=== PATIENT | female | born 1950 | race Caucasian/White ===

== ENCOUNTER → 2016-06-25 | Day surgery (SDC) | payer MEDICARE ==
[~2016-06-25] MED LIST: LACTATED RINGER'S 1000 ML INJ 1,000 ML ONE; LEVO.125 PO; LISI-515 PO; PROPOFOL 500 MG/50 ML BTL IV ONE
--- NOTE | 2016-06-25 08:57 | GIPROC ---
[facility] [address] [facility], [address] EGD PROCEDURE REPORT EXAM DATE: 06/25/2016 PATIENT NAME: Domitila Clayton MR #: [id number] BIRTHDATE: 1950 ATTENDING: Remy Flood MD ORDER #: [id number] VENDING MACHINE FILLER: none STATUS: outpatient INDICATIONS: The patient is a 66 yr old female here for an EGD due to history of GERD, hx of gastric mass, morbid obesity PROCEDURE PERFORMED: EGD w/ biopsy MEDICATIONS: None and Per Anesthesia. TOPICAL ANESTHETIC: none CONSENT: The patient understands the risks and benefits of the procedure and understands that these risks include, but are not limited to: sedation, allergic reaction, infection, perforation and/or bleeding. Alternative means of evaluation and treatment include, among others: physical exam, x-rays, and/or surgical intervention. The patient elects to proceed with this endoscopic procedure. medical equipment was checked for proper function. Hand hygiene and appropriate measures for infection prevention was taken. After the risks, benefits and alternatives of the procedure were thoroughly explained, Informed consent was verified, confirmed and timeout was successfully executed by the treatment team. The patient was anesthetized with topical anesthesia and the EC-[id number] ([id number]) endoscope was introduced through the mouth and advanced to the first portion of the duodenum. Patient had significant bile in stomach. Gastric mass present on posterior wall of stomach. Biopsies were taken of the gastric mass. The antrum was also biopsied for rule out of h. pylori. Retroflexed views revealed no abnormalities The gastroscope was then slowly withdrawn and removed. STOMACH: A smooth mass 3cm was found on the posterior wall of the stomach. ADVERSE EVENTS: There were no complications. IMPRESSIONS: 1. Mass was found on the posterior wall of the stomach 2. Retroflexed views revealed no abnormalities RECOMMENDATIONS: 1. await biopsy results. Biopsy results will not be ready for 7-10 days. If you don't hear from us in two weeks, call our office for biopsy results. 2. start PPIs 3. await biopsy results. Biopsy results will not be ready for 7-10 days. If you don't hear from us in two weeks, call our office for biopsy results. 4. disposition- home condition stable repeat exam- none REPEAT EXAM: none Remy Flood MD eSigned: Remy Flood MD 06/25/2016 8:57 AM cc: Dilshad Christianson M.D. CPT CODES: 30717 Upper gastrointestinal endoscopy including esophagus, stomach, and either the duodenum and/or jejunum as appropriate; with biopsy, single or multiple ICD CODES: 537.9 Unspecified disorder of stomach and duodenum V12.79 Personal history of other specified digestive system diseases The ICD and CPT codes recommended by this software are interpretations from the data that the clinical staff has captured with the software. The verification of the translation of this report to the ICD and CPT codes and modifiers is the sole responsibility of the health care institution and practicing physician where this report was generated. [employer] will not be held responsible for the validity of the ICD and CPT codes included on this report. AMA assumes no liability for data contained or not contained herein. CPT is a registered trademark of the [employer]. PATIENT NAME: Domitila Clayton MR#: [id number]
== END | disposition home or self-care (01) ==
LOC: ESDC 06:57
PROVIDERS: ATTEND Surgery
DX: K21.9 Gastro-esophageal reflux disease without esophagitis (principal); E66.01 Morbid (severe) obesity due to excess calories; K31.89 Other diseases of stomach and duodenum
CPT/HCPCS: 00740; 43239; 88305; 88312; J3010; J7120

== ENCOUNTER 2016-07-20 12:47 | Inpatient (IN) | payer MEDICARE ==
[~2016-07-20] VITALS: Ht 167.6 cm; Wt 103.6 kg
[2016-08-14] MEDS ORDERED: LISI-515 PO (15:06)
[2016-08-14] MEDS ORDERED: LEVO.125 PO (15:06)
[2016-08-17] MEDS ORDERED: LACTATED RINGER'S 1000 ML IV PRN (06:15)
[2016-08-17] MEDS ORDERED: APREPITANT 40 MG CAP PO SCH (06:15)
[2016-08-17] MEDS ORDERED: metroNIDAZOLE 500 MG INJ 100 ML IV SCH (06:15)
[2016-08-17] MEDS ORDERED: ACETAMINOPHEN 1000 MG/100 ML VIAL IV SCH (06:15)
[2016-08-17] MEDS ORDERED: METOPROLOL TARTRATE 25 MG TAB PO PRN (06:15)
[2016-08-17] MEDS ORDERED: ceFAZolin 2 GM PREMIX 50 ML IV SCH (06:15)
[2016-08-17] MEDS ORDERED: ONDANSETRON HCL 4 MG/2 ML VIAL IV PUSH SCH (06:15)
[2016-08-17] MEDS ORDERED: POVIDONE IODINE 5% (ANTISEPSIS KIT) 4 APPLICATIONS EACH NARE PRN (06:15)
[2016-08-17] MEDS ORDERED: CHLORHEXIDINE GLUCONATE 2 % 1 PACK (2 CLOTHS) TOPICAL PRN (06:15)
[2016-08-17] MEDS ORDERED: SODIUM CHLORID 0.9% 500 ML IV PRN (06:15)
[2016-08-17] MEDS ORDERED: SCOPOLAMINE 1.5 MG PATCH T-DERMAL SCH (06:15)
[2016-08-17] MEDS ORDERED: INSULIN HUMAN REGULAR 1,000 UNITS/10 ML VIAL SQ PRN (06:15)
[2016-08-17 06:43] VITALS: BP 135/72; PULSE 82; RESP 20; TEMP 98.9; O2SAT 92
[2016-08-17] MEDS ORDERED: BUPIVACAINE/EPINEPHRINE 0.25% PF 30 ML VIAL ONE (07:05)
[2016-08-17] MEDS ORDERED: MIDAZOLAM HCL 2 MG/2 ML VIAL ONE ×2 (07:54→08:13)
[2016-08-17] MEDS ORDERED: FAMOTIDINE 20 MG/2 ML VIAL ONE ×2 (07:54→08:13)
[2016-08-17] MEDS ORDERED: fentaNYL CITRATE 250 MCG/5 ML AMP ONE (07:54)
[2016-08-17] MEDS ORDERED: HYDROmorphone HCL PF 2 MG/ML VIAL ONE (07:54)
[2016-08-17] MEDS ORDERED: DEXAMETHASONE SOD PHOS 4 MG/ML VIAL ONE (08:13)
[2016-08-17] MEDS ORDERED: METHYLENE BLUE 10 MG/ML VIAL PO ONE (09:07)
[2016-08-17] MEDS: 1/2 NS + KCL 20 MEQ INJ 1,000 ML IV SCH ×3 (11:22→22:01)
[2016-08-17] MEDS ORDERED: SODIUM CHLORIDE 0.9% FLUSH 10 ML FLUSH IV FLUSH PRN (11:30)
[2016-08-17] MEDS ORDERED: ACETAMINOPHEN 325MG/HYDROcodone 7.5MG/15ML UDC PO PRN ×2 (11:30)
[2016-08-17] MEDS ORDERED: diphenhydrAMINE HCL ELIXIR 12.5 MG/5 ML CUP PO PRN (11:30)
[2016-08-17] MEDS ORDERED: Post-op Orders (for Pharmacy) MISC OTHER ONE (11:30)
[2016-08-17] MEDS ORDERED: ONDANSETRON HCL 4 MG/2 ML VIAL IV PRN (11:30)
[2016-08-17] MEDS ORDERED: diphenhydrAMINE HCL 50 MG/ML VIAL IV PRN (11:30)
[2016-08-17] MEDS ORDERED: ENALAPRILAT 1.25 MG/ML VIAL IV PUSH PRN (11:30)
[2016-08-17] MEDS ORDERED: NALOXONE HCL 0.4 MG/ML AMP IV PRN (11:30)
[2016-08-17] MEDS ORDERED: DO NOT ADM ANY ANTICOAGULANT DRUGS PRN (11:52)
[2016-08-17] MEDS: RESP: ALBUTEROL 2.5 MG/3 ML NEB (SCH) INH ×4 (12:00→23:55)
[2016-08-17] MEDS ORDERED: NEOSTIGMINE 3 MG/3 ML SYR IV ONE (12:00)
[2016-08-17] MEDS ORDERED: ONDANSETRON HCL 4 MG/2 ML VIAL IV PUSH ONE (12:00)
[2016-08-17] MEDS ORDERED: PROPOFOL 200 MG/20 ML AMP IV ONE (12:00)
[2016-08-17] MEDS ORDERED: LACTATED RINGER'S 1000 ML INJ 2,000 ML IV ONE (12:00)
[2016-08-17] MEDS ORDERED: ePHEDrine/NS 25 MG/5 ML SYR IV ONE (12:00)
[2016-08-17] MEDS ORDERED: PHENYLEPH/NS 1000 MCG/10 ML SYR IV ONE (12:00)
[2016-08-17] MEDS: METOCLOPRAMIDE HCL 10 MG/2 ML VIAL IV PUSH SCH ×3 (12:00→23:47)
[2016-08-17] MEDS: PCA - TOTAL MG MORPHINE DELIVERED PER SHIFT SCH ×2 (14:00→22:00)
[2016-08-17] MEDS: MORPHINE SULFATE 30 MG/30 ML PCA IV SCH (14:12)
[2016-08-17 15:12] VITALS: O2SAT 97
[2016-08-17] MEDS: metroNIDAZOLE 500 MG INJ 100 ML IV SCH ×2 (15:17→22:05)
[2016-08-17] MEDS: ENOXAPARIN SODIUM 40 MG/0.4 ML SYRINGE SQ SCH (15:17)
[2016-08-17 16:00] VITALS: BP 180/77; PULSE 101; RESP 16; TEMP 95.9; O2SAT 92
[2016-08-17 20:00] VITALS: BP 91/52; PULSE 74; RESP 20; TEMP 98.8; O2SAT 94
[2016-08-17 20:16] VITALS: O2SAT 94
[2016-08-17] MEDS: SODIUM CHLORIDE 0.9% FLUSH 10 ML FLUSH IV FLUSH SCH (21:00)
[2016-08-18] VITALS (7 sets, daily range): BP systolic 89–133; BP diastolic 58–70; PULSE 68–96; RESP 16–20; TEMP 96.7–99.8; O2SAT 93–97
[2016-08-18] MEDS: MORPHINE SULFATE 30 MG/30 ML PCA IV SCH (00:17)
[2016-08-18] MEDS: 1/2 NS + KCL 20 MEQ INJ 1,000 ML IV SCH ×4 (00:17→15:52)
[2016-08-18] MEDS: RESP: ALBUTEROL 2.5 MG/3 ML NEB (SCH) INH ×6 (04:18→23:08)
[2016-08-18] MEDS: PCA - TOTAL MG MORPHINE DELIVERED PER SHIFT SCH (04:31)
[2016-08-18] MEDS: METOCLOPRAMIDE HCL 10 MG/2 ML VIAL IV PUSH SCH (04:31)
[2016-08-18] MEDS: metroNIDAZOLE 500 MG INJ 100 ML IV SCH (04:33)
[2016-08-18 06:12] LABS: AUTOMATED NEUTROPHIL # 12.8 TH/MM3 (1.8-7.7); BASOPHIL % 0.2 % (0.0-2.0); HEMATOCRIT 38.9 % (35.0-46.0); HEMO FLAGS DIFF FINAL; LYMPH % 6.9 % (9.0-44.0); MEAN CELL VOLUME 86.9 FL (80.0-100.0); MEAN CORPUSCULAR HEMOGLOBIN 29.5 PG (27.0-34.0); MONO % 8.7 % (0.0-8.0); NEUT % 84.2 % (16.0-70.0); PLATELET COUNT 238 TH/MM3 (150-450); RED BLOOD COUNT 4.48 MIL/MM3 (4.00-5.30); RED CELL DISTRIBUTION WIDTH 12.8 % (11.6-17.2); WHITE BLOOD COUNT 15.2 TH/MM3 (4.0-11.0)
[2016-08-18 06:40] LABS: BICARBONATE 24.1 MEQ/L (21.0-32.0); MAGNESIUM 2.2 MG/DL (1.5-2.5); POTASSIUM 4.3 MEQ/L (3.5-5.1)
[2016-08-18] MEDS: SODIUM CHLORIDE 0.9% FLUSH 10 ML FLUSH IV FLUSH SCH ×2 (09:00→20:55)
[2016-08-18] MEDS: PANTOPRAZOLE SOD 40 MG DELAYED RELEASE TAB PO SCH (09:00)
[2016-08-18] MEDS ORDERED: SODIUM CHLORID 0.9% 500 ML INJ 500 ML IV ONE (09:45)
[2016-08-18] MEDS ORDERED: METOCLOPRAMIDE HCL 10 MG/2 ML VIAL IV PUSH PRN (11:30)
--- NOTE | 2016-08-18 12:18 | HHI.PR ---
Subjective Subjective Notes 66yo female POD#1 RNY. Laying in bed with complaints of dizziness when she stands up. Last BP readings show SBP 89, MAP remains >65. Denies nausea. Not passing flatus Objective Vitals/I&O Vital Signs, 24 Hour Date Time Temp Pulse Resp B/P Pulse Ox O2 Delivery O2 Flow Rate FiO2 08/18/16 12:00 96.7 89 16 116/67 94 08/18/16 08:00 96.7 87 16 89/59 97 08/18/16 04:31 16 08/18/16 04:00 99.8 68 20 100/58 94 08/18/16 00:17 20 08/18/16 00:00 97.6 70 20 106/58 97 08/17/16 22:00 16 08/17/16 20:16 94 Nasal Cannula 21 08/17/16 20:00 98.8 74 20 91/52 94 08/17/16 16:00 95.9 101 16 180/77 92 08/17/16 15:12 97 Nasal Cannula 3.00 08/17/16 14:12 14 08/17/16 14:00 16 08/17/16 12:30 69 21 115/59 94 Nasal Cannula 3 Allergies Coded Allergies No Known Allergies (Unverified08/14/16) Intake/Outtake 08/18/16 08/18/16 11:00 23:00 Intake Total 1131 ml Output Total 400 ml Balance 731 ml Laboratory Tests per Jing Test 08/18/16 04:38 White Blood Count 15.2 TH/MM3 Red Blood Count 4.48 MIL/MM3 Sodium Level 138 MEQ/L Potassium Level 4.3 MEQ/L Blood Urea Nitrogen 19 MG/DL Active Scripts Active Reported Synthroid (Levothyroxine Sodium) 125 Mcg Tab 125 Mcg PO DAILY Lisinopril 20 Mg Tab 20 Mg PO DAILY Vital Signs Date Time Temp Pulse Resp B/P Pulse Ox O2 Delivery O2 Flow Rate FiO2 08/18/16 12:00 96.7 89 16 116/67 94 08/17/16 20:16 Nasal Cannula 21 08/17/16 15:12 3.00 Labs Laboratory Tests Test 08/18/16 04:38 White Blood Count 15.2 Red Blood Count 4.48 Hemoglobin 13.2 Hematocrit 38.9 Mean Corpuscular Volume 86.9 Mean Corpuscular Hemoglobin 29.5 Mean Corpuscular Hemoglobin 34.0 Concent Red Cell Distribution Width 12.8 Platelet Count 238 Mean Platelet Volume 8.4 Neutrophils (%) (Auto) 84.2 Lymphocytes (%) (Auto) 6.9 Monocytes (%) (Auto) 8.7 Eosinophils (%) (Auto) 0.0 Basophils (%) (Auto) 0.2 Neutrophils # (Auto) 12.8 Lymphocytes # (Auto) 1.0 Monocytes # (Auto) 1.3 Eosinophils # (Auto) 0.0 Basophils # (Auto) 0.0 CBC Comment DIFF FINAL Differential Comment Sodium Level 138 Potassium Level 4.3 Chloride Level 105 Carbon Dioxide Level 24.1 Anion Gap 9 Blood Urea Nitrogen 19 Creatinine 1.06 Estimat Glomerular Filtration 52 Rate Random Glucose 120 Calcium Level 8.4 Magnesium Level 2.2 Cardiovascular: Regular Lungs: Clear Abdomen: Post-op tenderness Extremities: Perfused Wound Wound : Wound Location: Abdomen Appearance: Clean & Dry A/P Assessment and Plan Increase fluids and D/C WIRELESS FIELD TECHNICIAN Continue to increase fluids as tolerated Continue with frequent position change, ambulation as soon as possible. Continue to use IS, deep breath and cough The exam, history, and the medical decision-making described in the above note were completed with the assistance of the mid-level provider. I reviewed and agree with the findings presented. I attest that I had a [id number] encounter with the patient on the same day, and personally performed and documented my assessment and findings in the medical record. Discharge Planning D/C home most likely tomorrow Toribio Sanchez ECONOMIC HISTORIAN August 18, 2016 12:18 Dilshad Christianson MD August 21, 2016 09:03
[2016-08-18] MEDS: LEVOTHYROXINE SODIUM 125 MCG TAB PO SCH (12:40)
[2016-08-18] MEDS: ENOXAPARIN SODIUM 40 MG/0.4 ML SYRINGE SQ SCH (15:52)
[2016-08-19] VITALS: BP 124/68; PULSE 81; RESP 17; TEMP 96.7; O2SAT 96
[2016-08-19] MEDS: 1/2 NS + KCL 20 MEQ INJ 1,000 ML IV SCH ×3 (03:22→08:55)
[2016-08-19] MEDS: RESP: ALBUTEROL 2.5 MG/3 ML NEB (SCH) INH ×2 (04:00→07:28)
[2016-08-19] MEDS: LEVOTHYROXINE SODIUM 125 MCG TAB PO SCH (06:28)
[2016-08-19 07:28] VITALS: O2SAT 96
[2016-08-19 07:53] VITALS: BP 135/75; PULSE 85; RESP 19; TEMP 97.8; O2SAT 96
[2016-08-19] MEDS: PANTOPRAZOLE SOD 40 MG DELAYED RELEASE TAB PO SCH (08:53)
[2016-08-19] MEDS: SODIUM CHLORIDE 0.9% FLUSH 10 ML FLUSH IV FLUSH SCH (08:55)
--- NOTE | 2016-08-19 11:45 | HHI.PR ---
Subjective Subjective Notes POD#2 RNY Sitting up in bed in no acute distress. Denies nausea, tolerating fluids, passing flatus Objective Vitals/I&O Vital Signs, 24 Hour Date Time Temp Pulse Resp B/P Pulse Ox O2 Delivery O2 Flow Rate FiO2 08/19/16 07:53 97.8 85 19 135/75 96 08/19/16 07:28 96 Nasal Cannula 3.00 08/19/16 00:00 96.7 81 17 124/68 96 08/18/16 20:00 97.2 74 17 111/61 96 08/18/16 19:44 95 Nasal Cannula 3.00 08/18/16 16:00 97.3 96 17 133/70 93 08/18/16 12:00 96.7 89 16 116/67 94 Allergies Coded Allergies No Known Allergies (Unverified08/14/16) Intake/Outtake 08/19/16 08/19/16 11:00 23:00 Intake Total 895 ml Output Total 600 ml Balance 295 ml Orders-Toribio Sanchez Procedure Category Date Status Time Attending Discharge DISCHARGE 08/19/16 Transmitted Order Active Scripts Active Reported Synthroid (Levothyroxine Sodium) 125 Mcg Tab 125 Mcg PO DAILY Lisinopril 20 Mg Tab 20 Mg PO DAILY Vital Signs Date Time Temp Pulse Resp B/P Pulse Ox O2 Delivery O2 Flow Rate FiO2 08/19/16 07:53 97.8 85 19 135/75 96 08/19/16 07:28 Nasal Cannula 3.00 08/17/16 20:16 21 Cardiovascular: Regular Lungs: Clear Abdomen: Post-op tenderness Extremities: Perfused Wound Wound : Wound Location: Abdomen Appearance: Clean & Dry A/P Assessment and Plan Continue to increase fluids as tolerated Continue with frequent ambulation Continue to use IS, deep breath and cough The exam, history, and the medical decision-making described in the above note were completed with the assistance of the mid-level provider. I reviewed and agree with the findings presented. I attest that I had a [id number] encounter with the patient on the same day, and personally performed and documented my assessment and findings in the medical record. Discharge Planning D/C home today Toribio Sanchez August 19, 2016 11:45 Dilshad Christianson MD August 21, 2016 09:04
[2016-08-19 11:49] VITALS: BP 139/73; PULSE 73; RESP 18; TEMP 97.3; O2SAT 95
--- NOTE | 2016-08-21 13:35 | MP ---
cc: CLARICE BOB DATE OF SURGERY: 08/17/2016 DATE OF : 1950 PREOPERATIVE DIAGNOSIS: 1. Severe obesity with body mass index of 37, complicated by essential hypertension. 2. Mass in the body of the stomach. 3. Hiatal hernia. POSTOPERATIVE DIAGNOSIS: 1. Severe obesity with body mass index of 37, complicated by essential hypertension. 2. Mass in the body of the stomach. 3. Hiatal hernia. OPERATION: 1. Laparoscopic Jose Cruz-en-Y gastric bypass 100 cm Jose Cruz limb antegastric antecolic. 2. Laparoscopic hiatal hernia repair. 3. Laparoscopic wedge resection of gastric mass. SURGEON Clarice Bob MD. [employer]: Remy Flood MD. Dr. Flood was necessary for assistance during this operation. Due to the complexity of the operation Dr. Flood was necessary for manipulation, exposure, during the operation as well. The assistant professor of biochemistry that was provided by [facility] was utilized for the camera as well as at the back table. ANESTHESIA General endotracheal anesthesia ESTIMATED BLOOD LOSS Scant FINDINGS Moderate-sized hiatal hernia, gastric mass, fatty liver. SPECIMENS Stomach. Wedge. COMPLICATIONS None OPERATION The patient was brought to the operating room and placed on operating table in supine position. Bilateral sequential inflation device placed on lower extremities. General anesthesia instituted. Beltre catheter. General anesthesia instituted. The abdomen was prepped and draped sterilely. A point in the umbilical region was anesthetized with percent Marcaine with epinephrine. A skin incision was made 5 mm OptiVu port placed under direct vision and pneumoperitoneum created. Under direct vision a 5-mm left upper quadrant 12 mm left upper quadrant 12 mm right upper quadrant 5 mm right upper quadrant and 15 mm right upper quadrant port was placed prior to placement of all ports the skin and peritoneum anesthetized with 0.25% Marcaine with epinephrine. The abdominal cavity was inspected. Findings as above. Attention first focused on the stomach. The Sylvia flex retractor placed left lobe of the liver was retracted, the greater curvature of the stomach was mobilized from the antrum to the midbody using the harmonic scalpel. The mass was identified in the body of the stomach. An echelon flex stapler was then used to wedge of this mass. This was performed using a black load initially followed by two green loads. The mass was retrieved from the peritoneal cavity in an Endopouch through the 15 mm port site. Attention then focused on the lower abdomen. The omentum was split down the middle to create a path for Roulen. The ligament of Treitz was identified and 0.40 cm distal identified the small bowel divided in this region using an echelon flex stapler, white load reinforced with seam guard. The distal segment was brought up for a distance of 100 cm, enterotomy created in this region, enterotomy created in biliopancreatic limb and a orth-lp-fhbr stapled jejunojejunostomy created in the usual manner. The mesenteric defect of the jejunojejunostomy closed with 2-0 Surgitek suture in a running manner. Attention then focused on the hiatus, there is a hiatal hernia identified. The left and right crura of the diaphragm was dissected anteriorly. The hernia sac was then excised. The GE junction was mobilized into the abdominal cavity. The crura of the diaphragm was approximated with 0-silk suture in a rntplq-sa-kpcky manner. The angle of his was taken during this dissection a 0.5 cm distal to the GE junction identified. The lesser sac entered using blunt dissection the stomach partitioned horizontally using an echelon flex stapler blue load. An additional firing taken directed towards the angle of his to completely divide the stomach. Gastrotomy created a new stomach enterotomy in the Jose Cruz limb gastrojejunostomy created stomal opening of 2 cm an 18-[place] OG tube placed across the anastomosis. The defect then closed in two layers of running 2-0 Vicryl. Prior to placement of second layer methylene blue instilled through the OG tube there was no evidence of extravasation Eviseal was then placed over gastrojejunostomy jejunojejunostomy and all staple lines. The operative field inspected. Hemostasis assured. Sylvia flex retractor removed. CO2 released all ports remove all skin incisions closed with 4-0 Monocryl. The abdominal wall was cleaned and sterile dressing placed. The patient was awakened and taken to recovery room. MD SANDEEP Vivas/alfredo /12:21 PM /1:28 PM
== END 2016-08-19 12:24 | disposition home or self-care (01) | DRG 621 ==
LOC: HSDI 08-17 05:28 → N07A 08-17 12:56
PROVIDERS: ADMIT Surgery; ATTEND Surgery
PROC: 0DB64ZZ Excision of Stomach, Percutaneous Endoscopic Approach (ICD-10-PCS; 2016-08-17)
PROC: 0BQR4ZZ (ICD-10-PCS; 2016-08-17)
PROC: 0D164ZA Bypass Stomach to Jejunum, Percutaneous Endoscopic Approach (ICD-10-PCS; principal; 2016-08-17 08:38)
PROC: 0BQS4ZZ (ICD-10-PCS; 2016-08-17 08:38)
DX: E66.01 Morbid (severe) obesity due to excess calories (principal); K76.0 Fatty (change of) liver, not elsewhere classified; I10 Essential (primary) hypertension; Z68.36 Body mass index [BMI] 36.0-36.9, adult; K44.9 Diaphragmatic hernia without obstruction or gangrene; K31.9 Disease of stomach and duodenum, unspecified; E78.5 Hyperlipidemia, unspecified; Z68.37 Body mass index [BMI] 37.0-37.9, adult; E11.9 Type 2 diabetes mellitus without complications; E03.9 Hypothyroidism, unspecified; M19.90 Unspecified osteoarthritis, unspecified site; E55.9 Vitamin D deficiency, unspecified
CPT/HCPCS: 80048; 83735; 85025; 88307; 88309; 94150; 94640; 94664; J0131; J0690; J1100; J1170; J1650; J2250; J2270; J2370; J2405; J2710; J2765; J3010; J7040; J7120; J7613; J8501